=== PATIENT | female | born 1935 | race African-American/Black ===

== ENCOUNTER 2016-11-23 14:28 | Inpatient (IN) | payer MEDICARE, OTHER ==
[~2016-11-23] VITALS: Ht 154.9 cm; Wt 82.1 kg
[2016-11-23] MEDS ORDERED: SODIUM CHLORIDE 0.9% 1000ML BAG (SEPSIS BOLUS) IV ONE (15:15)
[2016-11-23 15:44] LABS: BASOPHILS % 0.8 % (0.0-2.0); EOSINOPHILS % 1.5 % (0.0-5.0); HEMOGLOBIN. 9.7 g/dL (12.0-16.0); LYMPHOCYTES % 30.7 % (20.0-50.0); MEAN CORPUSCULAR HEMOGLOBIN 32.6 pg (28.0-32.0); MEAN CORPUSCULAR VOLUME 94.5 fL (81.0-99.0); MONOCYTES % 5.7 % (2.0-8.0); NEUTROPHILS % 61.3 % (40.0-76.0); PLATELET 148 x1000/uL (130-400); RED BLOOD CELL COUNT 2.97 mill/uL (4.2-5.4); RED CELL DISTRIBUTION WIDTH 19.2 % (11.6-14.6)
[2016-11-23 15:53] LABS: INR 1.2; PROTHROMBIN TIME 12.2 sec
[2016-11-23 16:00] LABS: CARBON DIOXIDE 27 mEq/L (21-32); CHLORIDE 102 mEq/L (98-107); TROPONIN I < 0.02 ng/mL (0.00-0.04)
[2016-11-23 16:05] LABS: CLARITY URINE CLOUDY (CLEAR); COLOR URINE DARK YELLOW (YELLOW); GLUCOSE URINE NEGATIVE (NEGATIVE); KETONES URINE TRACE (NEGATIVE); LEUKOCYTE ESTERASE URINE TRACE (NEGATIVE); NITRITE URINE NEGATIVE (NEGATIVE); OCCULT BLOOD URINE NEGATIVE (NEGATIVE); PH URINE 5.5 (4.5-8.0); PROTEIN URINE 1+ (NEGATIVE); SPECIFIC GRAVITY URINE 1.025 (1.005-1.030)
[2016-11-23] MEDS ORDERED: ASPIRIN 325MG EC TABLET PO ONE (17:45)
[2016-11-23] MEDS: CLONIDINE 0.1MG TABLET PO PRN (22:09)
[2016-11-23 23:30] VITALS: BP 144/75
[2016-11-23 23:50] VITALS: BP 144/75
[2016-11-24] MEDS: ZOLPIDEM TARTRATE 5MG TABLET PO PRN ×2 (00:19→21:03)
[2016-11-24 04:00] VITALS: BP 143/78
[2016-11-24] MEDS: CLONIDINE 0.1MG TABLET PO PRN (05:43)
[2016-11-24 06:54] LABS: BASOPHILS % 0.4 % (0.0-2.0); HEMATOCRIT. 26.2 % (36.0-48.0); HEMOGLOBIN. 8.6 g/dL (12.0-16.0); LYMPHOCYTES % 34.6 % (20.0-50.0); MEAN CORPUSCULAR VOLUME 94.6 fL (81.0-99.0); PLATELET 128 x1000/uL (130-400); RED BLOOD CELL COUNT 2.77 mill/uL (4.2-5.4); RED CELL DISTRIBUTION WIDTH 19.6 % (11.6-14.6)
[2016-11-24 08:00] VITALS: BP 124/71
[2016-11-24] MEDS: LOSARTAN POTASSIUM 50 MG TABLET PO SCH (09:00)
[2016-11-24] MEDS: ASPIRIN 81MG TABLET PO SCH (10:16)
[2016-11-24 12:00] VITALS: BP 118/68
[2016-11-24 17:21] VITALS: BP 140/61
[2016-11-24] MEDS ORDERED: VANCOMYCIN 1250MG in DEXTROSE 5% WATER 250ML IV NR (18:00)
[2016-11-24 20:00] VITALS: BP 143/79
[2016-11-25] VITALS: BP_SYST 148; BP_SYST 160; BP_SYST 167; BP_DIAS 86; BP_DIAS 95; BP_DIAS 98
[2016-11-25 04:00] VITALS: BP 148/81
[2016-11-25 07:07] LABS: BASOPHILS % 0.4 % (0.0-2.0); EOSINOPHILS % 0.6 % (0.0-5.0); HEMATOCRIT. 26.9 % (36.0-48.0); LYMPHOCYTES % 30.6 % (20.0-50.0); MEAN CORPUSCULAR HEMOGLOBIN 31.3 pg (28.0-32.0); MEAN CORPUSCULAR VOLUME 93.7 fL (81.0-99.0); MEAN PLATELET VOLUME 6.9 fl (7.4-10.4); MONOCYTES % 5.6 % (2.0-8.0); NEUTROPHILS % 62.8 % (40.0-76.0); PLATELET 133 x1000/uL (130-400); RED BLOOD CELL COUNT 2.87 mill/uL (4.2-5.4); RED CELL DISTRIBUTION WIDTH 19.7 % (11.6-14.6)
[2016-11-25 08:00] VITALS: BP 147/87
[2016-11-25] MEDS: ASPIRIN 81MG TABLET PO SCH (08:28)
[2016-11-25] MEDS: LOSARTAN POTASSIUM 50 MG TABLET PO SCH (08:28)
[2016-11-25] MEDS ORDERED: HYDROCODONE/ACETAMINOPHEN 5/325MG TABLET PO PRN (10:00)
[2016-11-25 12:00] VITALS: BP 151/88
[2016-11-25 14:43] LABS: A/G RATIO 0.4 (0.7-1.7); ALBUMIN 3.2 g/dL (2.9-4.4); ALPHA-1-GLOBULIN 0.2 g/dL (0.0-0.4); ALPHA-2-GLOBULIN 0.7 g/dL (0.4-1.0); BETA GLOBULIN 0.7 g/dL (0.7-1.3); GAMMA GLOBULINS 5.8 g/dL (0.4-1.8); GLOBULIN TOTAL 7.5 g/dL (2.2-3.9); M-SPIKE 5.7 g/dL (Not Observed); TOTAL PROTEIN SERUM 10.7 g/dL (6.0-8.5)
[2016-11-25 16:00] VITALS: BP 149/76
[2016-11-25] MEDS ORDERED: VANCOMYCIN 750 MG PREMIX 150 ML IV SCH (18:00)
[2016-11-25 20:00] VITALS: BP 133/77
[2016-11-25] MEDS: ZOLPIDEM TARTRATE 5MG TABLET PO PRN (21:02)
[2016-11-26] VITALS: BP 158/94
[2016-11-26] MEDS: TRAMADOL 50MG TABLET PO PRN ×2 (02:25→09:09)
[2016-11-26 04:00] VITALS: BP_SYST 132; BP_SYST 140; BP_SYST 156; BP_DIAS 75; BP_DIAS 81; BP_DIAS 91
[2016-11-26 06:22] LABS: BASOPHILS % 0.7 % (0.0-2.0); EOSINOPHILS % 0.3 % (0.0-5.0); HEMATOCRIT. 25.5 % (36.0-48.0); HEMOGLOBIN. 8.6 g/dL (12.0-16.0); MEAN CORPUSCULAR HEMOGLOBIN 31.7 pg (28.0-32.0); MEAN CORPUSCULAR VOLUME 93.5 fL (81.0-99.0); MEAN PLATELET VOLUME 7.4 fl (7.4-10.4); MONOCYTES % 6.1 % (2.0-8.0); NEUTROPHILS % 59.9 % (40.0-76.0); PLATELET 142 x1000/uL (130-400); RED BLOOD CELL COUNT 2.72 mill/uL (4.2-5.4); RED CELL DISTRIBUTION WIDTH 19.6 % (11.6-14.6)
[2016-11-26 07:46] LABS: CARBON DIOXIDE 26 mEq/L (21-32); CHLORIDE 109 mEq/L (98-107)
[2016-11-26 08:00] VITALS: BP_SYST 145; BP_SYST 148; BP_SYST 183; BP_DIAS 80; BP_DIAS 93; BP_DIAS 96
[2016-11-26] MEDS: ASPIRIN 81MG TABLET PO SCH (08:15)
[2016-11-26] MEDS: LOSARTAN POTASSIUM 50 MG TABLET PO SCH (08:15)
[2016-11-26 12:00] VITALS: BP 157/88
[2016-11-26 16:00] VITALS: BP 153/83
[2016-11-26 16:52] VITALS: BP 153/83
== END 2016-11-26 18:35 | disposition home or self-care (01) | DRG 73 ==
LOC: ER 15:36 → 8WST 23:04 → INTOOBSV 23:04 → OBSVTOIN 23:04
PROVIDERS: ADMIT Internal Medicine Critical Care Medicine; ATTEND Internal Medicine Critical Care Medicine
DX: G90.9 Disorder of the autonomic nervous system, unspecified (principal); N17.0 Acute kidney failure with tubular necrosis; C90.00 Multiple myeloma not having achieved remission; E44.1 Mild protein-calorie malnutrition; K59.00 Constipation, unspecified; D63.0 Anemia in neoplastic disease; I12.9 Hypertensive chronic kidney disease with stage 1 through stage 4 chronic kidney disease, or unspecified chronic kidney disease; G89.29 Other chronic pain; Z96.1 Presence of intraocular lens; I95.9 Hypotension, unspecified; M54.5 Low back pain; N18.3 Chronic kidney disease, stage 3 (moderate); Z98.41 Cataract extraction status, right eye; Z98.42 Cataract extraction status, left eye; Z90.710 Acquired absence of both cervix and uterus; Z79.899 Other long term (current) drug therapy; Z87.891 Personal history of nicotine dependence; Z68.34 Body mass index [BMI] 34.0-34.9, adult
CPT/HCPCS: 36415; 70450; 71010; 80048; 80053; 80061; 81001; 82784; 83605; 83880; 84155; 84165; 84443; 84484; 85025; 85610; 86334; 86850; 86900; 87040; 87086; 93005; 93880; 97116; 97162; 97530; J3370; J7030; J7050; J7060

== ENCOUNTER 2016-12-28 09:00 | Emergency (ER) | payer OTHER ==
[~2016-12-28] VITALS: Ht 149.9 cm; Wt 82.9 kg
[2016-12-28] MEDS ORDERED: BENAZEPRIL (09:02)
[2016-12-28] MEDS ORDERED: ALLOPURINOL (09:02)
[2016-12-28] MEDS ORDERED: DEXAMETHASONE (09:02)
[2016-12-28] MEDS ORDERED: TRAMADOL 50MG TABLET PO ONE (09:30)
[2016-12-28] MEDS ORDERED: DIAZEPAM 2 MG TABLET PO ONE (11:45)
[2016-12-28 11:47] LABS: CLARITY URINE CLOUDY (CLEAR); COLOR URINE YELLOW (YELLOW); GLUCOSE URINE NEGATIVE (NEGATIVE); KETONES URINE 1+ (NEGATIVE); LEUKOCYTE ESTERASE URINE 1+ (NEGATIVE); NITRITE URINE NEGATIVE (NEGATIVE); OCCULT BLOOD URINE TRACE (NEGATIVE); PH URINE 5.5 (4.5-8.0); PROTEIN URINE 1+ (NEGATIVE); SPECIFIC GRAVITY URINE 1.023 (1.005-1.030); UROBILINOGEN URINE 0.2 E.U./dL (0.2-1.0)
[2016-12-28 12:24] VITALS: BP 157/80
[2016-12-28] MEDS ORDERED: NITROFURANTOIN 100MG M/M CAPSULE PO ONE (12:30)
== END 2016-12-28 12:30 | disposition home or self-care (01) ==
LOC: ER 09:01
DX: N39.0 Urinary tract infection, site not specified (principal); G89.29 Other chronic pain; M54.5 Low back pain; I10 Essential (primary) hypertension; M48.00 Spinal stenosis, site unspecified; C90.01 Multiple myeloma in remission; Z90.710 Acquired absence of both cervix and uterus
CPT/HCPCS: 72148; 81001; 87086; 93970; 99285

== ENCOUNTER 2017-02-12 10:32 | Inpatient (IN) | payer OTHER, MEDICARE ==
[~2017-02-12] VITALS: Ht 157.5 cm; Wt 75.7 kg
[2017-02-12] VITALS (12 sets, daily range): BP systolic 107–149; BP diastolic 56–85
[~2017-02-12 10:32] MED LIST: ALLOPURINOL; BENAZEPRIL; DEXAMETHASONE
[2017-02-12] MEDS ORDERED: METHYLPREDNISOLONE SOD SUCC 125 MG/2 ML VIAL IV STA (10:59)
[2017-02-12] MEDS ORDERED: IPRATROPIUM BROMIDE (0.02%) 0.5MG/2.5ML NEB HHN STA (10:59)
[2017-02-12] MEDS ORDERED: ALBUTEROL (0.083%) 2.5MG/3ML NEB HHN STA (10:59)
[2017-02-12 11:14] LABS: BG BASE EXCESS -8.5 mmol/L (-2.0-2.0); BG BILEVEL POS AIRWAY PRESSURE 15/5; BG CARBOXYHEMOGLOBIN 0.8 % (0.5-1.5); BG DEOXYHEMOGLOBIN 0.9 % (0.0-5.0); BG FRACTION INSPIRED OXYGEN 40; BG HCO3 ACT 15.8 mmol/L (22.0-26.0); BG METHEMOGLOBIN 0.8 % (0.0-1.5); BG OXYGEN SATURATION 99.1 % (92.0-98.5); BG OXYHEMOGLOBIN 97.5 % (94.0-97.0); BG PCO2 27.9 mmHg (35.0-45.0); BG PH 7.372 (7.350-7.450); BG PO2 140.6 mmHg (75.0-100.0); BG SAMPLE SITE RIGHT BRACHIAL; BG TOTAL HEMOGLOBIN 7.7 g/dL (12.0-18.0); BG VENT MODE MASK - BIPAP
[2017-02-12] MEDS ORDERED: ACETAMINOPHEN 650MG SUPP PR ONE (11:30)
[2017-02-12] MEDS ORDERED: SODIUM CHLORIDE 0.9% 1000ML BAG (SEPSIS BOLUS) IV ONE (11:30)
[2017-02-12] MEDS ORDERED: ALBUTEROL (0.5%) 2.5MG/0.5ML NEB HHN ONE (11:34)
[2017-02-12 11:55] LABS: MEAN CORPUSCULAR HEMOGLOBIN 31.6 pg (28.0-32.0); MEAN CORPUSCULAR VOLUME 94.8 fL (81.0-99.0); RED BLOOD CELL COUNT 2.22 mill/uL (4.2-5.4); RED CELL DISTRIBUTION WIDTH 23.5 % (11.6-14.6)
[2017-02-12 12:10] LABS: CARBON DIOXIDE 18 mEq/L (21-32); CHLORIDE 99 mEq/L (98-107); TROPONIN I 0.32 ng/mL (0.00-0.04)
[2017-02-12 12:20] LABS: INR 1.4; PROTHROMBIN TIME 14.9 sec
[2017-02-12 13:55] LABS: NUCLEATED RED BLOOD CELLS 4 /100 WBC
[2017-02-12 13:58] LABS: PLATELET 155 x1000/uL (130-400)
[2017-02-12 13:59] LABS: PLATELET ESTIMATE NORMAL
[2017-02-12] MEDS ORDERED: AZITHROMYCIN 500 MG in DEXT 5% WATER 250 ML IV SCH (14:30)
[2017-02-12] MEDS ORDERED: ACET-2178 PO (15:04)
[2017-02-12] MEDS ORDERED: TRAM50TA3 PO (15:04)
[2017-02-12] MEDS ORDERED: CLONIDINE 0.1MG TABLET PO PRN (16:45)
[2017-02-12] MEDS ORDERED: VANCOMYCIN 1 G PREMIX 200 ML IV SCH (16:45)
[2017-02-12] MEDS ORDERED: ACETAMINOPHEN 325MG TABLET PO PRN (16:45)
[2017-02-12] MEDS ORDERED: NA PHOS,M-B/NA PHOS,DI-BA ENEMA 118ML PR PRN (16:45)
[2017-02-12] MEDS ORDERED: TRAMADOL HCL/ACETAMINOPHEN 37.5/325MG TABLET PO PRN (17:00)
[2017-02-12] MEDS: BENAZEPRIL 20MG TABLET PO SCH (17:00)
[2017-02-12] MEDS: DOCUSATE SODIUM 100MG CAPSULE PO SCH (17:36)
[2017-02-12] MEDS: ALLOPURINOL 300 MG TABLET PO SCH (17:36)
[2017-02-12] MEDS ORDERED: ENOXAPARIN 80MG/0.8ML SYR SUBCUT SCH (18:00)
[2017-02-12] MEDS ORDERED: VANCOMYCIN 1500MG in DEXTROSE 5% WATER 250ML IV NR (18:30)
[2017-02-12 21:10] LABS: BG BASE EXCESS -4.2 mmol/L (-2.0-2.0); BG CARBOXYHEMOGLOBIN 0.2 % (0.5-1.5); BG DEOXYHEMOGLOBIN 9.2 % (0.0-5.0); BG FRACTION INSPIRED OXYGEN 24; BG HCO3 ACT 20.8 mmol/L (22.0-26.0); BG METHEMOGLOBIN 0.3 % (0.0-1.5); BG OXYGEN SATURATION 90.8 % (92.0-98.5); BG OXYHEMOGLOBIN 90.3 % (94.0-97.0); BG PH 7.357 (7.350-7.450); BG PO2 61.2 mmHg (75.0-100.0); BG SAMPLE SITE RIGHT RADIAL; BG TOTAL HEMOGLOBIN 9.8 g/dL (12.0-18.0); BG VENT MODE NASAL CANNULA
[2017-02-12 22:05] LABS: TROPONIN I 0.16 ng/mL (0.00-0.04)
[2017-02-12 22:06] LABS: CREATINE KINASE MB FRACTION 0.9 ng/mL (0.5-3.6)
[2017-02-12] MEDS: PIPERACILLIN/TAZ 3.375G PREMIX 50 ML IV SCH (22:28)
[2017-02-13] VITALS (23 sets, daily range): BP systolic 113–169; BP diastolic 62–101
[2017-02-13] MEDS: IPRATROPIUM/ALBUTEROL 0.5-3(2.5)MG/3ML NEB HHN SCH ×6 (00:45→21:12)
[2017-02-13] MEDS: PIPERACILLIN/TAZ 3.375G PREMIX 50 ML IV SCH ×3 (05:45→22:34)
[2017-02-13 07:35] LABS: HEMATOCRIT. 23.2 % (36.0-48.0); MEAN CORPUSCULAR VOLUME 90.2 fL (81.0-99.0); MEAN PLATELET VOLUME 8.5 fl (7.4-10.4); PLATELET 110 x1000/uL (130-400); RED BLOOD CELL COUNT 2.57 mill/uL (4.2-5.4)
[2017-02-13 08:28] LABS: PHOSPHORUS 3.7 mg/dL (2.5-4.9)
[2017-02-13 08:32] LABS: CREATINE KINASE MB FRACTION 0.7 ng/mL (0.5-3.6); TROPONIN I 0.21 ng/mL (0.00-0.04)
[2017-02-13] MEDS: ALLOPURINOL 300 MG TABLET PO SCH (10:00)
[2017-02-13] MEDS: DOCUSATE SODIUM 100MG CAPSULE PO SCH ×2 (10:00→18:00)
[2017-02-13] MEDS: BENAZEPRIL 20MG TABLET PO SCH (10:00)
[2017-02-13] MEDS ORDERED: KETOROLAC 15MG/ML VIAL IV PRN (10:45)
[2017-02-13] MEDS ORDERED: DEXT 5%/0.45% NACL KCL 20MEQ/L 1,000 ML IV SCH (12:00)
[2017-02-13 13:13] LABS: NUCLEATED RED BLOOD CELLS 5 /100 WBC; PLATELET ESTIMATE SLIGHTLY DECREASED
[2017-02-13 15:17] LABS: TROPONIN I 0.15 ng/mL (0.00-0.04)
[2017-02-13 15:18] LABS: CREATINE KINASE MB FRACTION 0.6 ng/mL (0.5-3.6)
[2017-02-13 15:20] LABS: AMMONIA < 10 uMol/L (<32)
[2017-02-13] MEDS ORDERED: ENOXAPARIN 30MG/0.3ML SYR SUBCUT SCH (18:00)
[2017-02-13] MEDS ORDERED: VANCOMYCIN 750 MG PREMIX 150 ML IV SCH (18:00)
[2017-02-13] MEDS ORDERED: ACETAMINOPHEN 650MG SUPP PR PRN (18:45)
[2017-02-13 20:11] LABS: BG BASE EXCESS -3.8 mmol/L (-2.0-2.0); BG CARBOXYHEMOGLOBIN 0.3 % (0.5-1.5); BG DEOXYHEMOGLOBIN 3.7 % (0.0-5.0); BG FRACTION INSPIRED OXYGEN 28; BG HCO3 ACT 20.1 mmol/L (22.0-26.0); BG METHEMOGLOBIN 0.5 % (0.0-1.5); BG OXYGEN SATURATION 96.3 % (92.0-98.5); BG OXYHEMOGLOBIN 95.5 % (94.0-97.0); BG PH 7.415 (7.350-7.450); BG PO2 86.1 mmHg (75.0-100.0); BG SAMPLE SITE RIGHT RADIAL; BG TOTAL HEMOGLOBIN 10.2 g/dL (12.0-18.0); BG VENT MODE NASAL CANNULA
[2017-02-14] VITALS (16 sets, daily range): BP systolic 127–149; BP diastolic 62–87
[2017-02-14] MEDS: IPRATROPIUM/ALBUTEROL 0.5-3(2.5)MG/3ML NEB HHN SCH ×4 (00:37→12:28)
[2017-02-14 05:37] LABS: HEMATOCRIT. 30.8 % (36.0-48.0); HEMOGLOBIN. 10.7 g/dL (12.0-16.0); MEAN CORPUSCULAR HEMOGLOBIN 30.7 pg (28.0-32.0); MEAN CORPUSCULAR VOLUME 88.3 fL (81.0-99.0); MEAN PLATELET VOLUME 7.1 fl (7.4-10.4); PLATELET 81 x1000/uL (130-400); RED BLOOD CELL COUNT 3.49 mill/uL (4.2-5.4); RED CELL DISTRIBUTION WIDTH 18.2 % (11.6-14.6)
[2017-02-14 05:55] LABS: PHOSPHORUS 3.4 mg/dL (2.5-4.9)
[2017-02-14] MEDS: PIPERACILLIN/TAZ 3.375G PREMIX 50 ML IV SCH (06:01)
[2017-02-14 08:48] LABS: BG BASE EXCESS -5.5 mmol/L (-2.0-2.0); BG CARBOXYHEMOGLOBIN 0.4 % (0.5-1.5); BG FRACTION INSPIRED OXYGEN 28; BG HCO3 ACT 18.2 mmol/L (22.0-26.0); BG METHEMOGLOBIN 0.5 % (0.0-1.5); BG OXYGEN SATURATION 93.9 % (92.0-98.5); BG OXYHEMOGLOBIN 93.1 % (94.0-97.0); BG PCO2 29.8 mmHg (35.0-45.0); BG PH 7.403 (7.350-7.450); BG PO2 70.2 mmHg (75.0-100.0); BG SAMPLE SITE RIGHT RADIAL; BG VENT MODE NASAL CANNULA
[2017-02-14] MEDS: ALLOPURINOL 300 MG TABLET PO SCH (09:48)
[2017-02-14] MEDS: BENAZEPRIL 20MG TABLET PO SCH (09:49)
[2017-02-14] MEDS: DOCUSATE SODIUM 100MG CAPSULE PO SCH (10:00)
[2017-02-14 12:44] LABS: NUCLEATED RED BLOOD CELLS 4 /100 WBC; PLATELET ESTIMATE DECREASED
[2017-02-14] MEDS ORDERED: VANCOMYCIN 750 MG PREMIX 150 ML IV SCH (18:00)
== END 2017-02-14 14:49 | disposition short-term general hospital (02) | DRG 871 ==
LOC: ER 11:15 → 3WST 12:41 → EDBEDREQTM 12:45 → EDBEDREQ 12:45 → EDBEDREQSVC 12:45 → ENRESERV 13:09
PROVIDERS: ADMIT Internal Medicine Pulmonary Disease; ATTEND Internal Medicine Pulmonary Disease
PROC: 5A09357 Assistance with Respiratory Ventilation, Less than 24 Consecutive Hours, Continuous Positive Airway Pressure (ICD-10-PCS; principal; 2017-02-12)
DX: A41.9 Sepsis, unspecified organism (principal); J18.9 Pneumonia, unspecified organism; J96.00 Acute respiratory failure, unspecified whether with hypoxia or hypercapnia; G93.41 Metabolic encephalopathy; N17.9 Acute kidney failure, unspecified; C90.00 Multiple myeloma not having achieved remission; E87.1 Hypo-osmolality and hyponatremia; E87.2 Acidosis; I12.9 Hypertensive chronic kidney disease with stage 1 through stage 4 chronic kidney disease, or unspecified chronic kidney disease; G89.29 Other chronic pain; N18.3 Chronic kidney disease, stage 3 (moderate); B96.3 Hemophilus influenzae [H. influenzae] as the cause of diseases classified elsewhere; M54.5 Low back pain; K59.00 Constipation, unspecified; M10.9 Gout, unspecified; D72.829 Elevated white blood cell count, unspecified; E87.70 Fluid overload, unspecified; E87.5 Hyperkalemia; D63.8 Anemia in other chronic diseases classified elsewhere; Z87.891 Personal history of nicotine dependence; Z90.710 Acquired absence of both cervix and uterus; Z91.14 Patient's other noncompliance with medication regimen
CPT/HCPCS: 36415; 36600; 70450; 71010; 78582; 80048; 80053; 80202; 82140; 82375; 82550; 82553; 82805; 82962; 83036; 83605; 83735; 83880; 84100; 84484; 85025; 85610; 86078; 86850; 86900; 86920; 87040; 87077; 87086; 92610; 93005; 93306; 93970; 94640; 94660; 94664; 96361; 96374; 99291; A9558; J0456; J1650; J1885; J2543; J2930; J3370; J7030; J7040; J7050; J7060; J7611; J7620; P9016